=== PATIENT | male | born 1975 | race Caucasian/White ===

== ENCOUNTER 2019-09-03 06:16 | Emergency (ER) | payer OTHER ==
[~2019-09-03] VITALS: Ht 170.2 cm; Wt 90.9 kg
[2019-09-03] MEDS ORDERED: BP MEDICATION (06:20)
[2019-09-03] MEDS ORDERED: PRED1TABL PO (06:20)
[2019-09-03] MEDS ORDERED: PROAAER10 INH (06:20)
[2019-09-03] MEDS ORDERED: DOXY150C PO (06:20)
[2019-09-03] MEDS ORDERED: triglyceride med (06:24)
--- NOTE | 2019-09-03 07:22 | REPVR ---
PROCEDURE INFORMATION: Exam: CT Head Without Contrast Exam date and time: 09/03/2019 6:45 AM Age: 44 years old Clinical indication: Dizziness TECHNIQUE: Imaging protocol: Computed tomography of the head without contrast. Radiation optimization: All CT scans at this facility use at least one of these dose optimization techniques: automated exposure control; mA and/or kV adjustment per patient size (includes targeted exams where dose is matched to clinical indication); or iterative reconstruction. COMPARISON: No relevant prior studies available. FINDINGS: Brain: Normal. No hemorrhage. Unremarkable white matter. No mass effect. Ventricles: Normal. No ventriculomegaly. Bones/joints: Unremarkable. No acute fracture. Sinuses: Visualized sinuses are unremarkable. No fluid levels. Mastoid air cells: Visualized mastoid air cells are well aerated. Soft tissues: Unremarkable. IMPRESSION: No acute intracranial abnormality. Electronically signed by: Barrett Muse On 09/03/2019 07:22:00 AM
[2019-09-03] MEDS: MECLIZINE 25 MG TABLET PO ONE (08:17)
[2019-09-03 09:00] VITALS: BP 136/63
[2019-09-03] MEDS ORDERED: MECL1TAB31 PO (09:25)
--- NOTE | 2019-09-04 07:52 | ECGEPIP ---
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
== END 2019-09-03 09:31 | disposition home or self-care (01) ==
LOC: M ED 06:16
DX: H81.10 Benign paroxysmal vertigo, unspecified ear (principal); J06.9 Acute upper respiratory infection, unspecified

== ENCOUNTER → 2020-06-19 | Outpatient (CLI) | payer SELFPAY ==
[~2020-06-19] MED LIST: BP MEDICATION; DOXY150C PO; MECL1TAB31 PO; PRED1TABL PO; PROAAER10 INH; triglyceride med
== END ==
LOC: M LABSMTC 12:47
PROVIDERS: ATTEND Pediatrics
DX: Z20.828 Contact with and (suspected) exposure to other viral communicable diseases (principal)